=== PATIENT | male | born 1975 | race Caucasian/White ===

== ENCOUNTER 2021-12-26 08:03 | Outpatient (CLI) | payer OTHER, SELFPAY ==
--- NOTE | 2021-12-30 14:50 | WPDHOMESLEEP ---
Sleep Study - Home Unattended Date of Study: 12/26/21 Ordering Provider: Jay Baptiste DO Interpreting Provider: Emily Medina DO Home Sleep Study Type: Watch PAT Height: 1.83 m Weight: 163.293 kg Body Mass Index: 48.8 Neck Circumference (inches): 18 [place]: 10 Reason for Sleep Study Patient was previously diagnosed with sleep apnea. Not currently on PAP therapy. Sleep History The patient is a 46-year-old male with hypertension, morbid obesity, sleep apnea and history of tobacco abuse that had a sleep study ordered by his primary care physician for evaluation of his sleep apnea. 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 The patient occasionally awakens from sleep short of breath. He occasionally awakens at night with heartburn, belching or cough. He constantly snores and is constantly loud enough that others complain. He constantly has trouble sleeping when he has a cold. He occasionally wakes up gasping for air throughout the night. He constantly has breathing problems at night observed by himself or others. He denies sweating excessively at night. He occasionally has heart palpitations or irregular heartbeats during the night. He denies falling asleep during the day. He rarely falls asleep while driving. He denies sleep paralysis, cataplexy and hypnagogic / hypnopompic hallucinations. He rarely has trouble at school or work due to sleepiness. He denies feeling afraid of going to sleep. He rarely has nightmares. He rarely remembers his dreams. He frequently has thoughts racing through his mind. He occasionally feels sad or depressed. He constantly has anxiety. He occasionally has muscular tension. He frequently notices parts of his body jerk. He denies kicking during the night. He frequently has crawling and aching feelings in his legs as well as leg pain during the night. He denies grinding his teeth during sleep and awakening with morning jaw pain. He denies being bothered by pain during the day and being awakened by pain during the night. He occasionally wakes up feeling stiff in the morning. He occasionally wakes up with sore or achy muscles. He occasionally wakes up with pain in the neck, spine or other joints. He goes to bed at 10:00 p.m. on both weekdays and weekends. He can fall asleep within 10 minutes. He wakes up 3-5 times throughout the night to use the restroom and get a drink. It could take him 3 minutes or 3 hours to fall back asleep. He wakes up at 6:00 a.m. on weekdays and 7:00 a.m. on the weekends. He typically gets 6-8 hours of sleep per night. He will stay in bed for an hour after waking up on the weekends. He currently lives alone. He does not consume any caffeinated beverages within 2 hours of bedtime. He does not engage in physical exercise before bedtime. He will watch television before falling asleep. He does not take naps in the afternoon or the evening. He does not consume any caffeinated beverages during the day. He will consume 8-10 alcoholic beverages per day. He denies tobacco use. He will use marijuana. 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
[2021-12-30 15:06] VITALS: BMI 48.8
== END 2021-12-30 08:11 | disposition home or self-care (01) ==
PROVIDERS: PCP Family Medicine; Visit Provider Family Medicine
DX: G47.33 Obstructive sleep apnea (adult) (pediatric) (principal)
CPT/HCPCS: 95800

== ENCOUNTER 2022-02-04 07:37 | Outpatient (CLI) | payer OTHER, SELFPAY ==
--- NOTE | 2022-02-26 17:22 | WPDSLEEPSTUD ---
Sleep Study Date of Study: 02/04/22 Ordering Provider: Jay Baptiste DO Interpreting Physician: Emily Medina DO Sleep Study Type: BiPAP Titration Height: 1.83 m Weight: 163.293 kg Body Mass Index: 48.8 Neck Circumference (inches): 18 [place]: 11 Reason for Sleep Study The patient had an HSAT on 12/26/2021 an overall AHI of 61.9 with desaturation down to 72%. Sleep History The patient is a 46-year-old male with hypertension, morbid obesity, sleep apnea and history of tobacco abuse that had a sleep study ordered by his primary care physician for evaluation of his sleep apnea.? 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 The patient occasionally awakens from sleep short of breath.? He occasionally awakens at night with heartburn, belching or cough.? He constantly snores and is constantly loud enough that others complain.? He constantly has trouble sleeping when he has a cold.? He occasionally wakes up gasping for air throughout the night.? He constantly has breathing problems at night observed by himself or others.? He denies sweating excessively at night.? He occasionally has heart palpitations or irregular heartbeats during the night.? He denies falling asleep during the day.? He rarely falls asleep while driving.? He denies sleep paralysis, cataplexy and hypnagogic / hypnopompic hallucinations.? He rarely has trouble at school or work due to sleepiness.? He denies feeling afraid of going to sleep.? He rarely has nightmares.? He rarely remembers his dreams.??He frequently has thoughts racing through his mind.? He occasionally feels sad or depressed.? He constantly has anxiety.??He occasionally has muscular tension.? He frequently notices parts of his body jerk.? He denies kicking during the night.??He frequently has crawling and aching feelings in his legs as well as leg pain during the night.??He denies grinding his teeth during sleep and awakening with morning jaw pain.? He denies being bothered by pain during the day and being awakened by pain during the night.? He occasionally wakes up feeling stiff in the morning.? He occasionally wakes up with sore or achy muscles.? He occasionally wakes up with pain in the neck, spine or other joints.? He goes to bed at 10:00 p.m. on both weekdays and weekends.? He can fall asleep within 10 minutes.? He wakes up 3-5 times throughout the night to use the restroom and get a drink.? It could take him 3 minutes or 3 hours to fall back asleep.? He wakes up at 6:00 a.m. on weekdays and 7:00 a.m. on the weekends.? He typically gets 6-8 hours of sleep per night.? He will stay in bed for an hour after waking up on the weekends.? He currently lives alone.? He does not consume any caffeinated beverages within 2 hours of bedtime.? He does not engage in physical exercise before bedtime.? He will watch television before falling asleep.? He does not take naps in the afternoon or the evening.? He does not consume any caffeinated beverages during the day.? He will consume 8-10 alcoholic beverages per day.? He denies tobacco use.? He will use marijuana. 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
[2022-02-26 17:23] VITALS: BMI 48.8
== END 2022-02-05 06:25 | disposition home or self-care (01) ==
LOC: ANHCSM 07:41
PROVIDERS: PCP Family Medicine; Visit Provider Family Medicine
DX: G47.33 Obstructive sleep apnea (adult) (pediatric) (principal)
CPT/HCPCS: 95811

== ENCOUNTER 2022-07-03 14:21 | Outpatient (CLI) | payer OTHER, SELFPAY ==
[2022-07-03 20:01] LABS: Vitamin D 25 Hydroxy 18.5 ng/mL
[2022-07-09 12:08] LABS: Testosterone Free 41.4 pg/mL (35.0-155.0); Testosterone Total 422 ng/dL (250-1100)
== END 2022-07-03 14:22 | disposition home or self-care (01) ==
LOC: ANHGOSHLAB 14:24
PROVIDERS: PCP Family Medicine; Visit Provider Family Medicine
DX: Z13.29 Encounter for screening for other suspected endocrine disorder (principal); R53.83 Other fatigue
CPT/HCPCS: 36415; 82306; 84402; 84403; 84443

== ENCOUNTER 2022-09-08 01:07 | Day surgery (SDC) | payer OTHER, SELFPAY ==
[2022-07-14 09:08] VITALS: BMI 48.1
[2022-09-08 06:40] VITALS: BP 171/91; PULSE 87; RESP 22; TEMP 36.4; O2SAT 99
[2022-09-08] MEDS: LACTATED RINGERS 1,000 ML 150 ML IV CONT (06:48)
--- NOTE | 2022-09-08 08:00 | P.PNAN_ITS ---
Anes - Initial Pre Proc Eval Procedure: Operation Date: 09/08/22 08:00 Proposed Procedures p Screening Colonoscopy - Alvaro Mcintyre MD Date/Time: 09/08/22 08:00 Surgeon: Alvaro Mcintyre MD Pre Op Diagnosis: neoplasm screening Patient Data Age: 46 Gender: M Height: 1.83 m Weight: 160.2 kg Last Vital Signs Temp 97.5 F L 09/08/22 06:40 Pulse 87 09/08/22 06:40 Resp 22 H 09/08/22 06:40 BP 171/91 H 09/08/22 06:40 Pulse Ox 99 09/08/22 06:40 O2 Del Method Room Air 09/08/22 06:40 Allergies Allergy/AdvReac Type Severity Reaction Status Date / Time No Known Allergies Allergy Verified 08/22/22 14:12 Home Medications Medication Instructions Recorded Confirmed Type omeprazole 20 mg capsule,delayed 20 mg PO DAILY 11/01/21 08/22/22 History release losartan 50 mg-hydrochlorothiazide 1 tablet PO DAILY #90 tabs 04/24/22 08/22/22 Rx 12.5 mg tablet Vitamin D3 2,000 units PO DAILY 07/14/22 08/22/22 History ibuprofen 400 mg tablet 400 mg PO BID 08/22/22 08/22/22 History Patient hx anesthesia problems: none Family hx anesthesia problems: none Results Review: All pre-operative results and documents have been reviewed as part of the pre- operative evaluation. [facility] Past Medical History Medical History Alcohol use disorder, moderate, in controlled environment, dependence Essential (primary) hypertension Morbid obesity due to excess calories Family History Family History Other Hypertension Social History Social History Smoking packs per day: 0.5 Smoking cigarettes per day: 10.0 Years smoked: 5 Smoking pack-years: 2.50 Smoking status: Former smoker Tobacco type: cigarettes Alcohol intake: current Drinks per week: 70 Alcohol use details: 5-6 drinks/ day-beer Substance use: current Substance use type: does not use Living arrangements: alone 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 Informed Consent: The patient's anesthetic plan and its attendant risks and benefits were discussed with the patient/family/POA. Questions were solicited and answers provided to the satisfaction of the patient/family/POA.
--- NOTE | 2022-09-08 08:31 | PM.HPGS ---
History of Present Illness History of Present Illness Consent: Risks, benefits, and alternatives have been discussed and questions answered. Patient agrees to proceed with procedure. Chief complaint: neoplasm screening Narrative: Drew Boyce is a 46 year old male here for first screening colonoscopy Review of Systems Constitutional: Constitutional: Denies headache(s) and Denies weakness Eyes: Eyes: Denies blurry vision ENT: Reports Normal hearing present, Denies headache(s) and Denies neck pain Cardiovascular: Cardiovascular: Denies chest pain and Denies dyspnea Respiratory: Respiratory: Denies dyspnea Gastrointestinal: Gastrointestinal: Reports no additional gastrointestinal complaints Genitourinary: Genitourinary: Denies dysuria Musculoskeletal: Musculoskeletal: Denies neck pain Integumentary/Breasts: Skin/Breast: Denies dry skin Neurologic: Reports Normal hearing present, Denies headache(s) and Denies weakness Psychiatric: Psychiatric: Denies anxiety Endocrine: Endocrine: Denies change in body appearance Hematologic/Lymphatic: Hematologic/Lymphatic: Denies easy bleeding Allergic/Immunologic: Allergic/Immunologic: Denies urticaria [facility] Past Medical History Medical History (Updated 09/08/22 @ 08:31 by Alvaro Mcintyre MD) Alcohol use disorder, moderate, in controlled environment, dependence Colon cancer screening Essential (primary) hypertension Morbid obesity due to excess calories Family History Family History Other Hypertension Social History Social History Smoking packs per day: 0.5 Smoking cigarettes per day: 10.0 Years smoked: 5 Smoking pack-years: 2.50 Smoking status: Former smoker Tobacco type: cigarettes Alcohol intake: current Drinks per week: 70 Alcohol use details: 5-6 drinks/ day-beer Substance use: current Substance use type: does not use Living arrangements: alone 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 Gender identity (if verbalized by the patient): Male Spiritual care concerns: No Meds Home Medications and Allergies Home Medications Medication Instructions Recorded Confirmed Type omeprazole 20 mg capsule,delayed 20 mg PO DAILY 11/01/21 08/22/22 History release losartan 50 mg-hydrochlorothiazide 1 tablet PO DAILY #90 tabs 04/24/22 08/22/22 Rx 12.5 mg tablet Vitamin D3 2,000 units PO DAILY 07/14/22 08/22/22 History ibuprofen 400 mg tablet 400 mg PO BID 08/22/22 08/22/22 History Allergies Allergy/AdvReac Type Severity Reaction Status Date / Time No Known Allergies Allergy Verified 08/22/22 14:12 Vital Signs Vital Signs - 24 hr 09/08/22 06:40 Temperature 97.5 F L Pulse Rate 87 Respiratory Rate 22 H Blood Pressure 171/91 H Pulse Oximetry 99 Oxygen Delivery Room Air Exam Const: General: comfortable and no acute distress HENMT: Face/Nose/Sinus: Normal nares present Eyes: General: appearance normal, both eyes and all related structures Neck: Neck: no JVD Resp: Auscultation: clear to auscultation bilaterally Cardio: Rate: regular rate Rhythm: regular rhythm GI: Inspection: non-distended GI Palp: Yes Soft to palpation Skin: General skin exam: normal color Neuro: General: gait normal Speech: normal speech Extrem: General: normal to inspection Psych: Mental Status: mental status grossly normal Assessment and Plan Assessment and plan (1) Colon cancer screening: Code(s): Z12.11 - Encounter for screening for malignant neoplasm of colon Status: Acute Assessment and Plan: colonoscopy
[2022-09-08 08:56] VITALS: BP 112/77; PULSE 77; RESP 27; O2SAT 99
[2022-09-08 09:06] VITALS: BP 131/85; PULSE 72; RESP 18; O2SAT 97
[2022-09-08 09:15] VITALS: BP 125/84; PULSE 72; RESP 16; O2SAT 99
== END 2022-09-08 09:24 | disposition home or self-care (01) ==
PROVIDERS: PCP Family Medicine; Visit Provider Internal Medicine Gastroenterology
PROC: 0DJD8ZZ Inspection of Lower Intestinal Tract, Via Natural or Artificial Opening Endoscopic (ICD-10-PCS; CPT 45378; principal; 2022-09-08 08:00)
DX: Z12.11 Encounter for screening for malignant neoplasm of colon (principal); K63.5 Polyp of colon; K64.8 Other hemorrhoids; I10 Essential (primary) hypertension; E66.01 Morbid (severe) obesity due to excess calories; Z68.42 Body mass index [BMI] 45.0-49.9, adult; Z87.891 Personal history of nicotine dependence; F10.20 Alcohol dependence, uncomplicated
CPT/HCPCS: 45385; 88305; J2704; J7120

== ENCOUNTER 2023-06-16 15:26 | Outpatient (CLI) | payer OTHER, SELFPAY ==
[2023-06-16 19:28] LABS: Alanine Aminotransferase 34 U/L (6-50); Albumin Level 4.6 g/dL (3.5-5.1); Alkaline Phosphatase 89 U/L (38-126); Anion Gap 7 mmol/L (8-16); Aspartate Amino Transferase 53 U/L (17-59); Bilirubin,Total 0.8 mg/dL (0.2-1.3); Blood Urea Nitrogen 11 mg/dL (9-20); Calcium 9.3 mg/dL (8.4-10.2); Carbon Dioxide 31 mmol/L (22-30); Chloride 91 mmol/L (98-107); Cholesterol 194 mg/dL (0-200); Estimated Glomerular Filt Rate > 60; Glucose 92 mg/dL (65-110); HDL Direct 79 mg/dL; Potassium 4.3 mmol/L (3.4-5.0); Sodium 129 mmol/L (137-145); Triglycerides 39 mg/dL (<150)
[2023-06-16 19:41] LABS: LDL Cholesterol Direct 75 mg/dL
== END 2023-06-16 15:27 | disposition home or self-care (01) ==
PROVIDERS: PCP Family Medicine; Visit Provider Family Medicine
DX: R73.9 Hyperglycemia, unspecified (principal); Z13.220 Encounter for screening for lipoid disorders; Z13.228 Encounter for screening for other metabolic disorders
CPT/HCPCS: 36415; 80053; 80061; 83036

== ENCOUNTER 2023-07-08 15:25 | Outpatient (CLI) | payer OTHER, SELFPAY ==
[2023-07-08 20:17] LABS: Anion Gap 8 mmol/L (8-16); Blood Urea Nitrogen 12 mg/dL (9-20); Calcium 9.1 mg/dL (8.4-10.2); Carbon Dioxide 31 mmol/L (22-30); Chloride 92 mmol/L (98-107); Estimated Glomerular Filt Rate > 60; Glucose 88 mg/dL (65-110); Potassium 4.1 mmol/L (3.4-5.0); Sodium 131 mmol/L (137-145)
== END 2023-07-08 15:26 | disposition home or self-care (01) ==
LOC: ANHGOSHLAB 15:26
PROVIDERS: PCP Family Medicine; Visit Provider Family Medicine
DX: I10 Essential (primary) hypertension (principal)
CPT/HCPCS: 36415; 80048

== ENCOUNTER 2023-12-11 15:46 | Outpatient (CLI) | payer OTHER, SELFPAY ==
[2023-12-11 19:43] LABS: Alanine Aminotransferase 17 U/L (6-50); Albumin Level 4.6 g/dL (3.5-5.1); Alkaline Phosphatase 90 U/L (38-126); Anion Gap 5 mmol/L (4-12); Aspartate Amino Transferase 38 U/L (17-59); Bilirubin,Total 0.8 mg/dL (0.2-1.3); Blood Urea Nitrogen 12 mg/dL (9-20); Calcium 9.4 mg/dL (8.4-10.2); Carbon Dioxide 32 mmol/L (22-30); Chloride 92 mmol/L (98-107); Estimated Glomerular Filt Rate > 60; Glucose 90 mg/dL (65-110); Potassium 4.3 mmol/L (3.4-5.0); Sodium 129 mmol/L (137-145)
== END 2023-12-11 15:47 | disposition home or self-care (01) ==
LOC: ANHGOSHLAB 15:47
PROVIDERS: PCP Family Medicine; Visit Provider Family Medicine
DX: Z13.228 Encounter for screening for other metabolic disorders (principal)
CPT/HCPCS: 36415; 80053